=== PATIENT | male | born 1985 | race Caucasian/White ===

== ENCOUNTER 2024-02-06 06:07 | Emergency (ER) | payer BC, SELFPAY ==
[2024-02-06 06:11] VITALS: BP 121/80
[2024-02-06 06:13] LABS: Glucose - Point of Care 131 mg/dl (70-99)
--- NOTE | 2024-02-06 07:06 | ED.GENMED ---
History of Present Illness
General
Chief Complaint: Fainting/Passed Out
Source: patient and other (RN witnessed)
Exam Limitations: none
Time Seen by Provider: 02/06/24 06:54
Nursing documentation reviewed up to this point in time: agreed with
History of Present Illness
History of Present Illness:
38-year-old male visiting from [place] had a syncopal event while assisting holding his child down getting a blood draw witnessed by the RN, states this looked like a vasovagal event patient has a history of the same, no chest pain or shortness of
breath he feels fine now with no tongue bite
Past History
Past History
ED Past Medical History: Other (Vasovagal syncope)
Social History
Tobacco: Non-smoker
Alcohol: None
Drug: None
Personal:
Living: with family
Employment: Employed
Review of Systems
Review of Systems
All Other Systems: Not applicable
Cardiac: Reports syncope
Neurological: Reports no symptoms
Phy Exam
Physical Exam
Physical Exam:
Physical Exam
General: no apparent distress, not acutely ill
Neck: No tongue
Heart: s1/s2 regular rate and rhythm, no murmur. equal radial pulses.
Lungs: no acute respiratory distress. clear bilaterally
Neuro: alert and oriented. no focal neurological deficits
Skin: no rash
Psychiatric: well kept. interactive and cooperative
Extremities: no edema.
Course
Orders/Labs/Results
Orders:
Orders
02/06/24 06:09
ECG [Electrocardiogram (*1)] Urgent
Reason for Study: Syncope
02/06/24 06:10
EKG- Treatment ONCE
Abnormal Lab Results
02/06/24
06:11
POC Glucose 131 H mg/dl
(70-99)
Vital Signs
Initial and Last Documented VS:
Initial Vital Signs
Temp Pulse Resp BP Pulse Ox
97.4 F 74 20 121/80 96
02/06/24 06:11 02/06/24 06:11 02/06/24 06:11 02/06/24 06:11 02/06/24 06:11
Last Documented Vital Signs
Temp Pulse Resp BP Pulse Ox
97.4 F 84 25 121/80 100
02/06/24 06:11 02/06/24 06:48 02/06/24 06:48 02/06/24 06:11 02/06/24 06:48
MDM/Problems Addressed
Differential Diagnosis Includes:
Vasovagal dehydration arrhythmia
MDM/Problems Addressed:
Syncope
*Pulse Oximetry
Patient hypoxic: no
*EKG
Interpreted by ED Provider?: Yes
Interpretation: normal
Comparison EKG: no comparison EKG present
Heart Rate: 78
Rate: normal
Ischemia: no ischemia
*[facility] Interpretation
Rate: normal
Interpretation: normal
Heart Rate: 78
Rhythm: sinus
*Critical Care Note
Total Time (30-74mins, 75-104mins- exclusive of procedures): Not Applicable
Update Note
Update Note:
Update looks like vasovagal episode by history and physical patient no acute distress
ED Attending Note
-
Portions of this chart may have been created with voice recognition software.� Occasional wrong word or��sound alike� substitutions may have occurred due to the inherent limitations of voice recognition software.
Discharge Plan
Departure
Patient Disposition: Home (Routine Discharge)
Date of Disposition: 02/06/24
Time of Disposition: 07:08
Patient with high blood pressure during this ER visit?: No
Condition: Good
Covid-19: Not Applicable
Discharge Problem:
Vasovagal episode
Instructions: Syncope (Fainting) (DC)
Referrals:
PRIVATE,PHYSICIAN [Family Provider] -
Interventions
Interventions:
*Risk Screen - Suicide Last Done: 02/06/24 06:11
*General Assessment Last Done: 02/06/24 06:11
*Neglect/Abuse Screening Last Done: 02/06/24 06:11
ED- Fall Risk Assessment Last Done: 02/06/24 06:11
*ED COVID-19 Vaccine History Last Done: 02/06/24 06:11
ED- Cardiac Assessment Last Done: 02/06/24 06:42
ED- Neurological Assessment Last Done: 02/06/24 06:42
Discharge Date and Time
Print Language: UKRAINIAN
[2024-02-06 07:09] VITALS: BP 138/82
[2024-02-06 07:10] VITALS: BP 138/82; BMI 28.1
== END 2024-02-06 07:48 | disposition home or self-care (01) ==
LOC: EMR 06:07
PROVIDERS: EMERGENCY PHYSICIAN Emergency Medicine
DX: R55 Syncope and collapse (principal); S09.90XA Unspecified injury of head, initial encounter; W18.39XA Other fall on same level, initial encounter; Y93.89 Activity, other specified; Y92.238 Other place in hospital as the place of occurrence of the external cause
CPT/HCPCS: 99283; 82962; 93005